=== PATIENT | female | born 1975 | race Two or more races ===

== ENCOUNTER 2020-05-30 21:58 | Emergency (ER) | payer OTHER ==
[~2020-05-30] VITALS: Ht 160 cm; Wt 101.2 kg
[~2020-05-30 21:58] MED LIST: ALBUTEROL2.5 MG/3 M IH; MACROBID 100 M100 MG PO; ZYNCOF 20-400120 ML PO
[2020-05-30] MEDS ORDERED: COZAAR50 MG (22:12)
== END 2020-05-31 02:12 | disposition home or self-care (01) ==
LOC: ER 21:58
DX: B34.9 Viral infection, unspecified (principal); J06.9 Acute upper respiratory infection, unspecified; Z03.818 Encounter for observation for suspected exposure to other biological agents ruled out

== ENCOUNTER 2020-11-25 17:17 | Emergency (ER) | payer OTHER ==
[~2020-11-25] VITALS: Ht 162.6 cm; Wt 104.3 kg
[~2020-11-25 17:17] MED LIST changes: +COZAAR50 MG
== END 2020-11-25 20:09 | disposition home or self-care (01) ==
LOC: ER 17:17
DX: R07.89 Other chest pain (principal); N39.0 Urinary tract infection, site not specified; F06.4 Anxiety disorder due to known physiological condition

== ENCOUNTER 2021-09-06 19:45 | Emergency (ER) | payer OTHER ==
[~2021-09-06] VITALS: Ht 162.6 cm; Wt 101.6 kg
== END 2021-09-06 21:59 | disposition home or self-care (01) ==
LOC: ER 19:45
DX: R51.9 Headache, unspecified (principal)

== ENCOUNTER 2021-11-07 13:22 | Emergency (ER) | payer OTHER ==
[~2021-11-07] VITALS: Ht 162.6 cm; Wt 91.6 kg
== END 2021-11-07 19:45 | disposition home or self-care (01) ==
LOC: ER 13:22
DX: R10.2 Pelvic and perineal pain (principal)

== ENCOUNTER 2021-11-08 22:53 | Emergency (ER) | payer OTHER ==
[~2021-11-08] VITALS: Ht 162.6 cm; Wt 90.7 kg
[2021-11-09] MEDS ORDERED: LOSARTAN POTASS50 MG PO (04:18)
== END 2021-11-09 04:08 | disposition home or self-care (01) ==
LOC: ER 22:53
DX: R07.89 Other chest pain (principal); I10 Essential (primary) hypertension

== ENCOUNTER 2022-08-30 10:04 | Outpatient (CLI) | payer OTHER ==
[~2022-08-30 10:04] MED LIST changes: +LOSARTAN POTASS50 MG PO
== END 2022-08-30 10:16 | disposition home or self-care (01) ==
LOC: MAMO-SONO 10:04
DX: N64.4 Mastodynia (principal)

== ENCOUNTER 2022-09-11 10:37 | Outpatient (CLI) | payer OTHER | END 2022-09-11 10:53 | disposition home or self-care (01) | LOC: SONOGRAMA 10:37 | DX: N70.93 Salpingitis and oophoritis, unspecified (principal); Z52 Donors of organs and tissues ==